=== PATIENT | female | born 1945 | race Caucasian/White ===

== ENCOUNTER → 2017-08-21 | Day surgery (SDC) | payer OTHER ==
[~2017-08-21] VITALS: Ht 162.6 cm; Wt 53.5 kg
[~2017-08-21] MED LIST: ALPH E MIXED PO; BENADRYL25 MG PO; GOOD SENSE ASP325 MG PO; MULTIVITAMIN1 TAB PO; MULTIVITAMINS1 EAC9 PO; SPIRIVA 18 MCG18 MCG INH; SPIRIVA18 MCG INH; VITAMIN C500 M3 PO; VITAMIN C500 M6 PO; VITAMIN D1000 UNIT PO
--- NOTE | 2017-08-24 18:35 | Operative Report ---
Operative/Inv Procedure Report Surgery Date: 08/21/17 Name of Procedure: Excision of left axillary mass, subcutaneous, over 3 cm diameter Pre-Operative Diagnosis: Axillary adenopathy, axillary mass invading skin Post-Operative Diagnosis: Same Estimated Blood Loss: scant Surgeon/Power Project Manager: Xiomara TADEO,Laith CHU Anesthesia: general endotracheal tube Operative/Procedure Note Note: She was positioned supine with her left arm gently abducted on an armboard after successful induction of general anesthesia the left axilla and surrounding areas were prepped and draped in usual sterile fashion we injected local anesthetic around this protruding skin lesion though we'll lifted it up a little bit based on exam and the CT scan there were smaller satellite lesions near it we aimed an elliptical incision around this mass to completely remove it with a normal appearing grossly, rim of skin whenever possible so that hopefully the closure was uninvolved. Initially the excision started with a 15 blade and then continued with cautery and then finished with the Harmonic scalpel there was edema behind the mass we did not pursue the rest of the axillary contents and adenopathy as it was extensive reaching level I specimen was set aside the resulting defect was irrigated and closed back up in layers using interrupted 3- 0 Vicryl sutures deep and running continuous 4-0 nylon for the skin itself followed by bacitracin Telfa and Tegaderm. EBL minimal lap and sponge counts correct wound expectancy clean IV fluids crystalloid complications none patient tolerated the procedure well was extubated and returned to recovery room in satisfactory condition.
== END ==
LOC: STS 07-24 02:42
DX: C79.2 Secondary malignant neoplasm of skin (principal); J44.9 Chronic obstructive pulmonary disease, unspecified; Z87.891 Personal history of nicotine dependence
CPT/HCPCS: J0690; J2250

== ENCOUNTER 2017-09-25 01:15 | Observation (INO) | payer OTHER ==
[~2017-09-25] VITALS: Ht 162.6 cm; Wt 54.1 kg
[2017-09-25 23:34] VITALS: BP 130/64
[2017-09-26 05:36] VITALS: BP 118/64
--- NOTE | 2017-09-26 11:27 | PN- General Surgery ---
See Addendum Subjective Subjective: Patient seen and evaluated with Dr. Bourgeois. No acute events overnight. Reports mild pain in right axilla. Per daughter, patient was oob and ambulated. Extensive drain teaching was given to patient by myself and attending surgeon. Currently comfortable and without complaints. Denies cp, sob, n/v/d, fever/ chills, bennett. Objective Vital Signs and I&Os Vital Signs Date Time Temp Pulse Resp B/P B/P Pulse O2 O2 Flow FiO2 Mean Ox Delivery Rate 09/26 0844 Nasal 2.0L Cannula 09/26 08 Nasal 2.0L Cannula 09/26 0536 97.7 66 20 118/64 97 Nasal 2.0L Cannula 09/25 2336 92 Nasal 2.5L Cannula 09/25 2334 97.7 74 20 130/64 92 Nasal 2.0L Cannula Intake & Output 09/26 1600 09/26 0800 09/26 0000 09/25 1600 09/25 0800 09/25 0000 Intake Total 700 Output Total 200 530 400 Balance -200 170 -400 Intake, IV 600 Intake, Oral 100 Output, 30 Drainage Output, Urine 200 500 400 Patient 119 lb 119 lb 115 lb Weight Weight Bed scale Measurement Method Physical Exam: General: this is a elderly female sitting upright in bed, answer questions without problems, nad CV: RRR, s1s2 Pulm: on 2L NC, decreased in b/l bases abdomen: soft, nt/nd, bs+ Extremities: feet are warm and well perfused, right axilla dressing is c/d/i, heike with scant ss drainage in buld - though was just emptied by nursing. moving right arm FROM Current Medications: Current Medications Sig/Manasa Start time Last Medication Dose Route Stop Time Status Admin Acetaminophen 1,000 MG Q8P PRN 09/25 2199 AC PO Acetaminophen 1,000 MG .STK-MED ONE 09/25 1738 DC IV 09/25 1739 Albuterol Sulfate 3 ML Q4P PRN 09/26 0845 AC INH Albuterol Sulfate 3 ML Q4-6 PRN PRN 09/25 220 DC INH Cefazolin Sodium 1,000 MG Q12 09/26 0900 AC 09/26 IV 09/26 2101 0814 Cefazolin Sodium 2,000 MG ONCE 09/25 0000 DC IV 09/25 2359 Diphenhydramine HCl 50 MG Q6-PRN PRN 09/25 2199 AC IV Docusate Sodium 100 MG BID 09/26 899 AC 09/26 PO 0814 Fentanyl Citrate 250 MCG .STK-MED ONE 09/258 DC IM 09/25 1739 Heparin Sodium 5,000 UNIT Q8 09/26 599 AC 09/26 (Porcine) SC 0608 Ipratropium Donaldson 2.5 ML Q4-6 PRN PRN 09/25 2199 AC INH Lactated Ringer's 1,000 ML Q13H 09/25 2199 DC 09/26 IV 0821 Midazolam HCl 2 MG .STK-MED ONE 09/25 173 DC IM 09/25 1740 Morphine Sulfate 2 MG Q3P PRN 09/25 2199 AC IV Morphine Sulfate 4 MG Q3P PRN 09/25 2199 AC IV Oxycodone HCl 5 MG Q4-6 PRN PRN 09/25 2199 AC PO Oxycodone HCl 10 MG Q4-6 PRN PRN 09/25 2199 AC 09/25 PO 2331 Pantoprazole Sodium 40 MG DAILY 09/26 899 AC 09/26 IV 0815 Polyethylene Glycol 17 GM DAILY 09/26 09 AC 09/26 PO 0815 Tiotropium Donaldson 1 PUF DAILY 09/26 899 AC 09/26 INH 0817 Results Last 48 Hours of Labs: Laboratory Tests 09/26 0635 Chemistry Sodium (137 - 145 mmol/L) 136 L Potassium (3.5 - 5.1 mmol/L) 4.9 Chloride (98 - 107 mmol/L) 96 L Carbon Dioxide (22 - 30 mmol/L) 34 H Anion Gap (5 - 16) 6 BUN (7 - 17 mg/dL) 13 Creatinine (0.5 - 1.0 mg/dL) 0.4 L Estimated GFR (>60 ml/min) > 60 BUN/Creatinine Ratio (7 - 25 %) 32.5 H Assessment/Plan Assessment/Plan This is a 72 y/o F w/ PMHx of tobacco use, COPD not on home oxygen, and sbo now POD#1 s/p right axillary lymph node disection. Patient seen and examined with Attending. He is in agreement of the following. - okay to il home today. Patient will need drain teaching prior to discharge - patient is chronic c02 retainer 2/[address] Bourgeois, okay to discharge even with low saturations. - continue to monitor drain output - Continue home inhalers - continue current pain meds Core Measures Venous Thromboembolism VTE Risk Factors Surgery No Mechanical VTE Prophylaxis d/t N/A MechProphylax Ordered No VTE Pharm Prophylaxis d/t NA PharmProphylax ordered
[2017-09-26 12:00] VITALS: BP 110/60
--- NOTE | 2017-09-26 12:17 | Patient Discharge Instructions ---
Discharge Instructions General Discharge Information You were seen/treated for: Axillary lymph node disection You had these procedures: Axillary biopsy Watch for these problems: fever >101, signs of wound infection, increase drain output, nausea/vomiting Call Surgeon to remove: Drain Do not soak the wound: Yes Daily wet to dry dressings: No Other wound care: Keep area clean/dry/intact. Empty and record drain output. Diet Continue normal diet: Yes Activity Activity Limited to: Walking with Assistance Acute Coronary Syndrome Inclusion Criteria At DC or during hospital stay patient has or had the following: ACS DIAGNOSIS No Discharge Core Measures Meds if any: Prescribed or Continued at Discharge Meds if any: NOT Prescribed or Continued at Discharge Congestive Heart Failure Inclusion Criteria At DC or during hospital stay patient has or had the following: CHF DIAGNOSIS No Discharge Core Measures Meds if any: Prescribed or Continued at Discharge Meds if any: NOT Prescribed or Continued at Discharge Cerebrovascular accident Inclusion Criteria At DC or during hospital stay patient has or had the following: CVA/TIA Diagnosis No Discharge Core Measures Meds if any: Prescribed or Continued at Discharge Meds if any: NOT Prescribed or Continued at Discharge Venous thromboembolism Inclusion Criteria VTE Diagnosis No VTE Type NONE VTE Confirmed by (Test) NONE Discharge Core Measures - Per Current guidelines, there needs to be overlap - treatment for the first 5 days of Warfarin therapy. - If discharged on Warfarin prior to 5 days of - overlap therapy, the patient will need to be - assessed for post discharge needs including - *Post discharge parental anticoagulation - *Warfarin and/or parental anticoagulation education - *Follow up date to check INR post discharge At least 5 days overlap therapy as Inpatient No Meds if any: Prescribed or Continued at Discharge Note: Overlap Therapy is Warfarin and Anticoagulant Meds if any: NOT Prescribed or Continued at Discharge
--- NOTE | 2017-09-26 12:49 | Surg Short-stay <48hrs Dis Sum ---
Visit Information Visit Dates Admission Date: 09/25/17 Discharge Date: 09/26/17 Surgical Short Stay DC Summary Admission Diagnosis: Left axillary lymph node disection Final Diagnosis: Same Procedure(s): Left Axillary node disection Summary/Significant Findings: Procedure went without complications. ABI drain was left in place. Post op course was uncomplicated. She was discharge home on POD#1 Condition at Discharge: Stable Discharge Disposition: home or self care Discharge instructions provided to patient/family: Yes Post discharge follow-up plan: Follow up with your surgeon early next week for drain mangment
--- NOTE | 2017-09-29 18:53 | Operative Report ---
Operative/Inv Procedure Report Surgery Date: 09/25/17 Name of Procedure: Complete left axillary dissection Pre-Operative Diagnosis: Left axillary metastases Post-Operative Diagnosis: Same Estimated Blood Loss: scant Surgeon/It Network Administrator: Xiomara TADEO,Laith CHU Anesthesia: general endotracheal tube Operative/Procedure Note Note: Patient was positioned supine with her left arm abducted axilla was prepped and draped in the usual sterile fashion. You could feel some subdermal nodules we aimed an elliptical incision encompassing the previous excision the nylon sutures were still in there it was about 2 cm wide we try to avoid the dermal nodules grossly but we needed to leave adequate skin to be able to close the defect. This island of skin was then enlarged on all sides and deepened mostly with cautery but as we progressed we converted to using just the Harmonic focus ultrasonic scalpel, the aim was to remove the axillary contents bounded superiorly by the axillary vein medially by the anterior surface of the pectoralis minor posteriorly by the subscapularis muscle and the chest wall at the level of the serratus anterior. There were vertical venous branches coming off the axillary vein the medial one contained the thoracodorsal nerve which was preserved. Also preserved the long thoracic along the serratus anterior. There were multiple very firm variously sized pathologic lymph nodes distorting the anatomy of this "box" and there were several enlarged thickened lymphatic channels and some costal brachial cutaneous nerves running through the specimen and these were sacrificed but the specimen was kept in one piece, besides the anatomic limits we were also guided by palpation and near the axillary vein we were more conservative to avoid injury. I feel overall we removed the gross disease. We left a small round Wale-Rosario drain in the area bringing it out through a separate stab incision securing it to the skin with a nylon suture. Next we irrigated checked for hemostasis and closed in layers using 3-0 Vicryl sutures deep and a running nylon for the skin itself followed by gauze and tape. EBL minimal lap and sponge counts correct wound expectancy clean IV fluids crystalloid complications none patient tolerated the procedure well was extubated and returned to recovery room in satisfactory condition.
== END 2017-09-26 13:39 ==
LOC: STS 01:15 → PACUH 21:14 → ENRESERV 21:47 → ENTRNSPT 22:24 → EDTRNSPTSTS 22:26 → 2NA 22:35 → CMPTRNSPT 22:47 → ENPENDDIS 09-26 12:32 → ENTRNSPT 09-26 13:15 → EDTRNSPT 09-26 13:23 → EDTRNSPTSTS 09-26 13:23 → 2NA 09-26 13:39 → CMPTRNSPT 09-26 13:58
DX: C80.1 Malignant (primary) neoplasm, unspecified (principal); C77.3 Secondary and unspecified malignant neoplasm of axilla and upper limb lymph nodes; Z87.891 Personal history of nicotine dependence; J44.9 Chronic obstructive pulmonary disease, unspecified; E04.9 Nontoxic goiter, unspecified
CPT/HCPCS: 1263; 1328; 1530; 1748; 6030; 36592; 82436; 96372; 96374; 96375; 97161-GP; G0378; G8978-GP; G8979-GP; G8980-GP; J0131; J0690; J1644; J2001; J3490; J7120